=== PATIENT | female | born 1985 | race Caucasian/White ===

== ENCOUNTER 2017-02-07 21:26 | Emergency (ER) | payer OTHER ==
--- NOTE | 2017-02-08 06:58 | ER ---
ADMIT: 02/07/2017 RM/LOC: ER [facility] MR#: [id number] [address] [id number] [place] [address] Emergency Room Report SEX: F AGE: 31 : 1985 DATE: 02/07/2017 HISTORY OF PRESENT ILLNESS: The patient is a 31-year-old female, who came to the ER with chief complaint of right index finger laceration allegedly. The patient was at home, tried to cut something with a clean, sharp kitchen knife and cut the distal phalanx of the right index in the volar part. The patient states vaccination is up-to-date and complains of the pain, which is mild in the area. The patient denies any numbness in the area. The patient states that it cut superficial and did not go deep inside finger. PHYSICAL EXAMINATION: GENERAL: The patient is in no distress. VITAL SIGNS: Stable. Head and neck and chest and abdomen and the rest of the extremities are noncontributory EXTREMITIES: In the right index finger on the palmar side, there is 1 to 1.5 cm laceration extending just to the tip of the right index finger, which is linear and clean and is superficial with no active bleeding. Neurovascular is grossly intact. Normal capillary filling. There are no foreign bodies. Deep and superficial flexor tendons exam are grossly normal. I did not see any injuries to the flexor tendons in the physical examination. Wound was anesthetized with 1% lidocaine without epinephrine. Wound was irrigated with copious. The wound was repaired in 1 layer of Ethilon 4.0 superficial with three suture successfully without any complications. The patient was discharged to home with return precautions, wound care handout and follow up with the primary doctor in 10 days for removal of the sutures. Sam Ordaz MD/ vickie JOB #: [id number] CC: Sam Ordaz MD, Attending Physician Magdaleno Stauffer MD, Family Physician
== END 2017-02-07 22:35 | disposition home or self-care (01) ==
LOC: ER 21:26
PROC: 0HQFXZZ Repair Right Hand Skin, External Approach (ICD-10-PCS; principal; 2017-02-07)
DX: S61.210A Laceration without foreign body of right index finger without damage to nail, initial encounter (principal); F17.210 Nicotine dependence, cigarettes, uncomplicated; F32.9 Major depressive disorder, single episode, unspecified; Z98.890 Other specified postprocedural states; Z79.899 Other long term (current) drug therapy; W26.0XXA Contact with knife, initial encounter; Y92.009 Unspecified place in unspecified non-institutional (private) residence as the place of occurrence of the external cause